=== PATIENT | female | born 1985 | race Caucasian/White ===

== ENCOUNTER 2016-09-21 10:13 | Inpatient (IN) | payer OTHER ==
[~2016-09-21] VITALS: Ht 162.6 cm; Wt 65.0 kg
[2016-09-21] MEDS ORDERED: OXYTOCIN 30U/ 0.9% NaCL 500ML 500 ML IV ONE (10:20)
[2016-09-21] MEDS: FENTANYL PF 100 MCG/2ML IVPush PRN ×2 (10:20→11:33)
[2016-09-21] MEDS: LACTATED RINGERS 1,000 ML IV SCH ×3 (10:20→11:38)
[2016-09-21] MEDS ORDERED: FENTANYL PF 100 MCG/2ML ONE ×2 (10:26→11:29)
[2016-09-21] MEDS ORDERED: FENTANYL PF 100 MCG/2ML IV PRN (10:30)
[2016-09-21] MEDS ORDERED: TERBUTALINE 1 MG/ML, 1ML IVPush PRN (10:30)
[2016-09-21] MEDS ORDERED: ONDANSETRON 2MG/ML, 2ML IVPush PRN (10:30)
[2016-09-21] MEDS ORDERED: NEWBORN KIT ONE (10:35)
[2016-09-21] MEDS ORDERED: PENICILLIN GK 5,000,000 UNITS in DEXTROSE 5% 100 ML IVPB ONE (11:00)
[2016-09-21] MEDS ORDERED: LIDOCAINE/PF 1.5%-EPI 1:200K, 30ML ONE ×2 (11:03→11:32)
[2016-09-21] MEDS ORDERED: OXYTOCIN 30U/ 0.9% NaCL 500ML 500 ML ONE (11:29)
[2016-09-21] MEDS ORDERED: FENTANYL/BUPIV./NS/PF 250 ML EPIDCONT ONE (11:32)
[2016-09-21] MEDS ORDERED: PENICILLIN GK 2,500,000 UNITS in DEXTROSE 5% 100 ML IVPB SCH (15:00)
[2016-09-21] MEDS ORDERED: GENTAMICIN PER PHARMACY MC PRN (17:00)
[2016-09-21] MEDS ORDERED: LACTATED RINGERS 1,000 ML IV SCH (17:25)
[2016-09-21] MEDS ORDERED: FENTANYL/BUPIV./NS/PF 250 ML EPIDCONT SCH (17:25)
[2016-09-21] MEDS ORDERED: NALOXONE 0.4 MG/ML, 1ML IVPush PRN (17:30)
[2016-09-21] MEDS ORDERED: EPHEDRINE 50 MG/ML, 1ML IVPush PRN (17:30)
[2016-09-21] MEDS ORDERED: LACTATED RINGERS 1,000 ML IVBOLUS PRN (17:30)
[2016-09-21] MEDS ORDERED: PHARMACOKINETIC MONITORING MC PRN (17:30)
[2016-09-21] MEDS: GENTAMICIN 130 MG in SODIUM CHLORIDE 0.9% 50 ML IV SCH (17:40)
[2016-09-21] MEDS ORDERED: LIDOCAINE 1%, 20ML ONE (17:46)
[2016-09-21] MEDS: OXYTOCIN 30U/ 0.9% NaCL 500ML 500 ML IV SCH (18:28)
[2016-09-21] MEDS ORDERED: CARBOPROST TROMETHAMINE 250 MCG/ML, 1ML IM PRN (18:30)
[2016-09-21] MEDS ORDERED: MEASLES,MUMPS&RUBELLA VACC/PF 0.5 ML SQ PRN (18:30)
[2016-09-21] MEDS ORDERED: HYDROcodone/APAP 5/325 TABLET PO PRN (18:30)
[2016-09-21] MEDS ORDERED: METHYLERGONOVINE 0.2 MG/ML IM PRN (18:30)
[2016-09-21] MEDS ORDERED: MISOPROSTOL 200 MCG TABLET PR PRN (18:30)
[2016-09-21] MEDS ORDERED: RHOGAM FROM BLOOD BANK 1 NOTE EA IM/IV ONE (18:30)
[2016-09-21] MEDS ORDERED: METOCLOPRAMIDE 5 MG/ML, 2ML IV PRN (18:30)
[2016-09-21] MEDS ORDERED: ONDANSETRON 2MG/ML, 2ML IV PRN (18:30)
[2016-09-21] MEDS ORDERED: GLYCERIN ADULT SUPP PR PRN (18:30)
[2016-09-21] MEDS ORDERED: MAGNESIUM HYDROXIDE 8%, 30ML UDC PO PRN (18:30)
[2016-09-21] MEDS: AMPICILLIN 2 GM in SODIUM CHLORIDE 0.9% 100 ML IV SCH (18:30)
[2016-09-21] MEDS ORDERED: BISACODYL 10 MG SUPP PR PRN (18:30)
[2016-09-21] MEDS ORDERED: DIPH,PERTUSS(ACELL),TET VAC/PF NC IM-VACC PRN (18:30)
[2016-09-21] MEDS ORDERED: ACETAMINOPHEN 325 MG TABLET PO PRN ×2 (18:30)
[2016-09-21] MEDS ORDERED: HYDROcodone/APAP 10/325 MG TABLET PO PRN (18:30)
[2016-09-21] MEDS ORDERED: IBUPROFEN 600 MG TABLET ONE (18:54)
[2016-09-21] MEDS: IBUPROFEN 600 MG TABLET PO PRN (19:02)
[2016-09-21 19:55] VITALS: BP 124/82
[2016-09-21] MEDS: OXYcodone/APAP 5/325MG TABLET PO PRN (22:23)
[2016-09-21] MEDS: CALCIUM CARBONATE 500 MG TAB.CHEW PO PRN (23:14)
[2016-09-22] MEDS: AMPICILLIN 2 GM in SODIUM CHLORIDE 0.9% 100 ML IV SCH ×3 (00:11→12:43)
[2016-09-22 00:15] VITALS: BP 112/73
[2016-09-22] MEDS: IBUPROFEN 600 MG TABLET PO PRN ×3 (01:42→16:34)
[2016-09-22] MEDS: GENTAMICIN 130 MG in SODIUM CHLORIDE 0.9% 50 ML IV SCH ×3 (01:42→16:34)
[2016-09-22 02:06] LABS: HEMOGLOBIN 10.1 g/dL (11.7-16.4)
[2016-09-22] MEDS: OXYTOCIN 30U/ 0.9% NaCL 500ML 500 ML IV SCH ×2 (04:28→14:28)
[2016-09-22 04:45] VITALS: BP 128/85
[2016-09-22 06:19] LABS: BLOOD UREA NITROGEN 5 mg/dL (7-18)
[2016-09-22] MEDS: DOCUSATE 100 MG CAPSULE PO PRN ×2 (08:36→20:44)
[2016-09-22] MEDS: OXYcodone/APAP 5/325MG TABLET PO PRN ×4 (08:37→20:44)
[2016-09-22 08:38] VITALS: BP 113/78
[2016-09-22] MEDS: PRENATAL VIT/IRON/FA 1 EACH TABLET PO SCH (09:00)
[2016-09-22 21:00] VITALS: BP 114/74
[2016-09-23] MEDS: OXYTOCIN 30U/ 0.9% NaCL 500ML 500 ML IV SCH (00:28)
[2016-09-23] MEDS: IBUPROFEN 600 MG TABLET PO PRN ×2 (02:22→09:38)
[2016-09-23] MEDS: OXYcodone/APAP 5/325MG TABLET PO PRN ×3 (02:22→12:54)
[2016-09-23] MEDS ORDERED: IBUP-1222 PO (06:24)
[2016-09-23] MEDS ORDERED: DOCU-30 PO (06:26)
[2016-09-23 06:30] LABS: HEMOGLOBIN 9.9 g/dL (11.7-16.4)
[2016-09-23] MEDS: PRENATAL VIT/IRON/FA 1 EACH TABLET PO SCH (07:38)
[2016-09-23] MEDS: DOCUSATE 100 MG CAPSULE PO PRN (07:38)
[2016-09-23 07:40] VITALS: BP 112/77
[2016-09-23] MEDS: CALCIUM CARBONATE 500 MG TAB.CHEW PO PRN (09:38)
[2016-09-23] MEDS ORDERED: OXYC-302 PO (10:56)
== END 2016-09-23 13:10 | disposition home or self-care (01) | DRG 775 ==
LOC: LDOP 10:13 → LDIP 10:16 → 2NW 19:37
PROVIDERS: ADMIT Obstetrics & Gynecology; ATTEND Obstetrics & Gynecology
PROC: 10E0XZZ Delivery of Products of Conception, External Approach (ICD-10-PCS; principal; 2016-09-21)
PROC: 0DQR0ZZ Repair Anal Sphincter, Open Approach (ICD-10-PCS; 2016-09-21)
PROC: 00HU33Z Insertion of Infusion Device into Spinal Canal, Percutaneous Approach (ICD-10-PCS; 2016-09-21)
PROC: 3E0R3CZ (ICD-10-PCS; 2016-09-21)
DX: O99.824 Streptococcus B carrier state complicating childbirth (principal); O41.1230 Chorioamnionitis, third trimester, not applicable or unspecified; Z37.0 Single live birth; O76 Abnormality in fetal heart rate and rhythm complicating labor and delivery; Z3A.38 38 weeks gestation of pregnancy; O75.81 Maternal exhaustion complicating labor and delivery; O70.20 Third degree perineal laceration during delivery, unspecified
CPT/HCPCS: 36415; 82565; 84520; 85025; 86850; 86900; J0290; J2540; J3010; J3490; J1580; J2590; J7120